=== PATIENT | male | born 1975 | race American Indian/Alaskan Native ===

== ENCOUNTER 2016-04-22 16:22 | Outpatient (CLI) | payer OTHER ==
--- NOTE | 2016-04-23 08:17 | XRay Report ---
LEFT WRIST FOUR VIEWS:04/22/16 16:22:00 CLINICAL: Pain. FINDINGS: No fracture or dislocation. The radiocarpal joint is normal. Several degenerative cysts of the scaphoid, lunate and capitate. The carpal metacarpal joints are normal. Normal soft tissues. IMPRESSION: A few degenerative carpal bone cysts and otherwise normal.
== END 2016-04-22 16:23 | disposition home or self-care (01) ==
LOC: SPVIMAG 16:22
PROVIDERS: ATTEND Family Medicine
DX: M25.832 Other specified joint disorders, left wrist (principal)

== ENCOUNTER 2017-04-06 15:04 | Emergency (ER) | payer OTHER ==
[2017-04-06 15:19] VITALS: BP 142/85
[2017-04-06] MEDS ORDERED: NORCO 5/325 PO ONE (18:29)
--- NOTE | 2017-04-06 18:43 | Emergency Department Report ---
HPI - General Chief Complaint: Extremity Injury, Lower Time Seen by Provider: 04/06/17 18:29 - HPI HPI: 41-year-old male presents to the emergency department with complaint of pain to the right Achilles. He says that he started to roll his ankle on Thursday, 3 days ago, but felt more pain and pressure in the Achilles region. It has gotten progressively worse since. He has been able to ambulate to some extent but says he cannot go far and the pain worsens with ambulation. He says that it hurts the most when the foot is "relaxed". He received a pain pill from his earlier today that did help some with his relief. He has a past medical history of hypertension. ED Past Medical Hx - Past Medical History Hx Hypertension: Yes - Surgical History Past Surgical History?: No - Social History Smoking Status: Never Smoker Substance Use Type: Alcohol - Medications Home Medications: Home Medications Medication Instructions Recorded Confirmed Last Taken Type HYDROcodone/APAP 5-325 [Lometa 1 each PO Q6HR PRN #10 tablet 04/06/17 Unknown Rx 5/325] ED Review of Systems ROS: Stated complaint: RIGHT ACHILLES PAIN Other details as noted in HPI Comment: All other systems reviewed and negative Constitutional: denies: chills, fever Eyes: denies: eye pain, eye discharge, vision change ENT: denies: ear pain, throat pain Respiratory: denies: cough, shortness of breath, wheezing Cardiovascular: denies: chest pain, palpitations Gastrointestinal: denies: abdominal pain, nausea, diarrhea Genitourinary: denies: urgency, dysuria Musculoskeletal: arthralgia. denies: back pain Skin: denies: rash, lesions Neurological: denies: headache, weakness, paresthesias Physical Exam - Physical Exam Vital Signs: Vital Signs 04/06/17 15:17 Temperature 98.7 F Pulse Rate 79 Respiratory 20 Rate Blood Pressure 142/85 O2 Sat by Pulse 96 Oximetry Physical Exam: GENERAL: The patient is well-developed well-nourished. HENT: Normocephalic. Atraumatic. Patient has moist mucous membranes. EYES: Extraocular motions are intact. NECK: Supple. Trachea is midline. CHEST/LUNGS: Clear to auscultation. There is no respiratory distress noted. HEART/CARDIOVASCULAR: Regular. There is no tachycardia. There is no murmur. ABDOMEN: Abdomen is soft, nontender. Patient has normal bowel sounds. There is no abdominal distention. SKIN: Skin is warm and dry. There is some mild nonpitting swelling to the circumferential ankle. NEURO: The patient is awake, alert, and oriented. The patient is cooperative. The patient has no focal neurologic deficits. The patient has normal speech. MUSCULOSKELETAL: Tenderness to palpation along the posterior right ankle including the Achilles. There is some decreased range of motion of the right foot with flexion and extension secondary to pain. ED Course Vital Signs 04/06/17 15:17 Temperature 98.7 F Pulse Rate 79 Respiratory 20 Rate Blood Pressure 142/85 O2 Sat by Pulse 96 Oximetry ED Medical Decision Making - Radiology Data Radiology results: image reviewed interpreted by me: X-ray of the right ankle does not show any fracture or dislocation. - Medical Decision Making Patient presents with a 3 day history of progressively worsening posterior ankle and/or Achilles pain. X-ray does not show any obvious fracture, consultation or acute process. He may need MRI or further evaluation to definitively identify if the Achilles is torn. He was placed in a splint and given crutches to remain nonweightbearing until follow-up and was given referrals for 2 different orthopedic groups. He will some pain medication and these referrals. He'll return to the ER if any worsening of symptoms or any acute distress. - Differential Diagnosis fracture, dislocation, Achilles tendon tear Critical Care Time: No Critical care attestation.: If time is entered above; I have spent that time in minutes in the direct care of this critically ill patient, excluding procedure time. ED Disposition Clinical Impression: Pain in Achilles tendon Disposition: DC-01 TO HOME OR SELFCARE Is pt being admited?: No Condition: Stable Instructions: Arthralgia (ED) Additional Instructions: Please follow up with an orthopedist in the next few days. I have given you a few different names of local orthopedists. You should remain using the crutches and nonweightbearing until follow-up or unless you have resolution of your pain. Return to the emergency Department with any worsening of your symptoms or any acute distress. You have been prescribed a medication that is sedating and therefore should not be taken prior to driving, working, and responsible for children and in no way should be mixed with alcohol of any quantity. Prescriptions: HYDROcodone/APAP 5-325 [Lometa 5/325] 1 each PO Q6HR PRN #10 tablet PRN Reason: Pain Referrals: ESPERANZA BORGES MD [Staff Physician] - 3-5 Days [facility] [Provider Group] - 3-5 Days Forms: Work/School Release Form(ED) Time of Disposition: 19:09
--- NOTE | 2017-04-06 20:07 | XRay Report ---
FINAL REPORT PROCEDURE: XR ANKLE 3+V RT TECHNIQUE: RIGHT ankle radiographs, AP, lateral, and oblique views. CPT 41145 HISTORY: ankle pain COMPARISON: No prior studies are available for comparison. FINDINGS: Fracture (s) and/or Dislocation(s): None. Alignment: Normal. Joint space(s): Normal. Soft tissues: Normal. Bone mineralization: Normal. Foreign bodies: None. Calcaneal spurring: None. IMPRESSION: Normal Examination.
[2017-04-06] MEDS ORDERED: NORCO 5/325 ONE (20:32)
== END 2017-04-06 20:59 | disposition home or self-care (01) ==
LOC: ED 15:04
DX: M25.571 Pain in right ankle and joints of right foot (principal); I10 Essential (primary) hypertension; W18.49XA Other slipping, tripping and stumbling without falling, initial encounter; Y93.89 Activity, other specified; Y92.89 Other specified places as the place of occurrence of the external cause; Y99.8 Other external cause status